=== PATIENT | female | born 1955 | race African-American/Black ===

== ENCOUNTER 2021-03-15 12:14 | Outpatient (CLI) | payer MEDICARE | END 2021-03-15 12:15 | disposition home or self-care (01) | LOC: BICULT 12:14 | PROVIDERS: ATTEND Nurse Practitioner Family | DX: Z12.31 Encounter for screening mammogram for malignant neoplasm of breast (principal); E03.9 Hypothyroidism, unspecified | CPT/HCPCS: 76536; 77063; 77067 ==

== ENCOUNTER 2021-05-04 13:14 | Outpatient (CLI) | payer MEDICARE | END 2021-05-04 13:15 | disposition home or self-care (01) | LOC: BICMAMMO 13:14 | PROVIDERS: ATTEND Nurse Practitioner Family | DX: Z13.820 Encounter for screening for osteoporosis (principal); E55.9 Vitamin D deficiency, unspecified | CPT/HCPCS: 77080 ==

== ENCOUNTER 2021-06-27 10:29 | Outpatient (CLI) | payer MEDICARE | END 2021-06-27 10:30 | disposition home or self-care (01) | LOC: RAD-FRANK 10:29 | PROVIDERS: ATTEND Nurse Practitioner Family | DX: M25.562 Pain in left knee (principal); M17.12 Unilateral primary osteoarthritis, left knee ==

== ENCOUNTER 2022-01-26 13:58 | Outpatient (CLI) | payer OTHER | END 2022-01-26 13:59 | disposition home or self-care (01) | LOC: RAD-FRANK 13:58 | PROVIDERS: ATTEND Nurse Practitioner Family | DX: I10 Essential (primary) hypertension (principal) | CPT/HCPCS: 71046 ==

== ENCOUNTER 2022-04-13 13:39 | Outpatient (CLI) | payer OTHER | END 2022-04-13 13:40 | disposition home or self-care (01) | LOC: DTY/OP 13:39 | PROVIDERS: ATTEND Nurse Practitioner Family | DX: E66.9 Obesity, unspecified (principal); E78.5 Hyperlipidemia, unspecified; I10 Essential (primary) hypertension; R73.01 Impaired fasting glucose; Z71.3 Dietary counseling and surveillance; Z68.44 Body mass index [BMI] 60.0-69.9, adult | CPT/HCPCS: 97802 ==

== ENCOUNTER 2024-03-20 12:57 | Outpatient (CLI) | payer MEDICARE ==
[2024-03-20 14:18] LABS: #Basophils 0.05 10x3/uL (0.0-0.2); %Basophils 0.4 % (0.0-1.0); %Eosinophils 1.3 % (0.0-10.0); %Lymphocytes 15.6 % (21.0-51.0); %Monocytes 6.4 % (0.0-10.0); %Neutrophils 76.1 % (42.0-75.0); Hematocrit 40.7 % (36.0-47.0); Hemoglobin 13.2 g/dL (12.0-16.0); Mean Corpuscular HGB CONC 32.4 g/dL (32.0-36.0); Mean Corpuscular Hemoglobin 30.4 pg (27.0-31.0); Mean Corpuscular Volume 93.8 fL (78.0-98.0); Mean Platelet Volume 9.5 fL (7.4-10.4); Platelet Count 541 10x3/uL (130-400); RBC Distribution Width 14.4 % (11.5-14.5); Red Blood Cell (RBC) Count 4.34 mill/uL (4.20-5.40)
[2024-03-20 14:35] LABS: ALT (SGPT) 11 U/L (8-55); AST (SGOT) 13 U/L (5-34); Albumin 3.4 g/dL (3.4-4.8); Alkaline Phosphatase 61 U/L (40-110); Anion Gap 11 mmol/L (10-20); BUN (Urea Nitrogen) 30 mg/dL (9.8-20.1); Bilirubin, Total 0.4 mg/dL (0.2-1.2); Calc. Creatinine Clearance 0 mL/min (70-130); Calcium 11.3 mg/dL (7.8-10.44); Carbon Dioxide 24 mmol/L (23-31); Chloride 105 mmol/L (98-107); Estimated GFR 45; Globulin 4.6 g/dL (2.4-3.5); Glucose 99 mg/dL (80-115); Hemoglobin A1c 5.7 % (4.0-6.0); Potassium 4.3 mmol/L (3.5-5.1); Sodium 136 mmol/L (136-145)
== END 2024-03-20 12:58 | disposition home or self-care (01) ==
LOC: LABBT 12:57
PROVIDERS: ATTEND Surgery
DX: Z01.818 Encounter for other preprocedural examination (principal); E66.01 Morbid (severe) obesity due to excess calories
CPT/HCPCS: 80053; 83036; 85025; 93005; 93010

== ENCOUNTER 2024-03-20 14:00 | Inpatient (IN) | payer MEDICARE ==
[2024-03-20 13:26] VITALS: BMI 60.1
[2024-04-01] MEDS ORDERED: Bupivacaine 0.25% HCL 30 ML VIAL ONE (06:36)
[2024-04-01] MEDS ORDERED: EPINEPHrine 1 MG/ML VIAL ONE (06:36)
[2024-04-01] MEDS ORDERED: Heparin 5,000 UNITS/ML VIAL ONE (06:45)
[2024-04-01] MEDS ORDERED: PROPOFOL 20 ML ONE (07:05)
[2024-04-01] MEDS ORDERED: Rocuronium Bromide 10 MG/ML (10ML VIAL) ONE (07:05)
[2024-04-01] MEDS ORDERED: Lidocaine 1% PF 5 ML VIAL ONE (07:05)
[2024-04-01] MEDS ORDERED: fentaNYL PF 100 MCG/2 ML SYRINGE ONE (07:05)
[2024-04-01] MEDS ORDERED: CEFAZOLIN 2 GM VIAL ONE (07:24)
[2024-04-01] MEDS ORDERED: Dexamethasone 20 MG/5 ML VIAL ONE (07:55)
[2024-04-01] MEDS ORDERED: Ondansetron PF 4 MG/2 ML Vial ONE (07:55)
[2024-04-01] MEDS ORDERED: PHENYLEPHRINE-NS 100 MCG/ML 10 ML SYRINGE ONE (07:56)
[2024-04-01] MEDS ORDERED: ePHEDrine Sulfate 50 MG/10 ML VIAL ONE (08:05)
[2024-04-01] MEDS ORDERED: SUGAMMADEX SODIUM 200 MG/2 ML VIAL ONE (08:36)
[2024-04-01] MEDS ORDERED: fentaNYL 50 mcg/mL 1 mL Vial ONE ×3 (09:02→09:59)
[2024-04-01] MEDS ORDERED: Non-Formulary Item 1 EACH (Levothyroxine Sodium [Synthroid] 200 MCG Tablet) PO SCH (09:24)
[2024-04-01] MEDS ORDERED: Ipratropium/Albuterol 3 ML NEB NEB PRN (09:24)
[2024-04-01] MEDS ORDERED: oxyCODONE 5 MG TAB PO PRN (09:24)
[2024-04-01] MEDS ORDERED: Dextrose 5% in Water 1,000 ML IV PRN (09:24)
[2024-04-01] MEDS ORDERED: Glucagon 1 MG/ML KIT IM PRN (09:24)
[2024-04-01] MEDS ORDERED: diphenhydrAMINE 50 MG/ML VIAL IVP PRN (09:24)
[2024-04-01] MEDS ORDERED: Non-Formulary Item 1 EACH (Carvedilol [Coreg] 12.5 MG Tab) PO SCH (09:24)
[2024-04-01] MEDS ORDERED: Dextrose 50% Abboject 50 ML SYRINGE SLOW IVP PRN (09:24)
[2024-04-01] MEDS ORDERED: Ondansetron PF 4 MG/2 ML Vial IVP PRN (09:24)
[2024-04-01] MEDS ORDERED: Non-Formulary Item 1 EACH (Losartan Potassium [Cozaar] 100 MG Tablet) PO SCH (09:24)
[2024-04-01] MEDS ORDERED: hydrALAZINE 20 MG/ML VIAL SLOW IVP PRN (09:24)
[2024-04-01] MEDS ORDERED: Liothyronine Sodium 5 MCG TAB PO SCH (09:24)
[2024-04-01] MEDS ORDERED: traMADol HCl 50 MG TAB PO PRN (09:24)
[2024-04-01] MEDS ORDERED: Promethazine HCl 25 MG/ML VIAL IM PRN ×2 (09:24→10:00)
[2024-04-01] MEDS ORDERED: SYNTHROID 200 MCG PO SCH (09:45)
[2024-04-01] MEDS ORDERED: Ondansetron HCl/PF 4 MG/2 ML Vial IVP PRN (10:00)
[2024-04-01] MEDS: Pantoprazole 40 MG VIAL IVP SCH (11:22)
[2024-04-01] MEDS: Enoxaparin 40 MG (0.4 mL) SYRINGE SC SCH (11:22)
[2024-04-01] MEDS: Hydrochlorothiazide 25 MG TAB PO SCH (11:22)
[2024-04-01] MEDS: Amlodipine 5 MG TAB PO SCH (11:22)
[2024-04-01] MEDS: Spironolactone 100 MG TAB PO SCH (11:22)
[2024-04-01] MEDS: Acetaminophen 500 MG TAB PO SCH (11:26)
[2024-04-01] MEDS: D5 1/2 NS w/20 mEq KCL 1,000 ML IV SCH (11:38)
[2024-04-01] MEDS: Acetaminophen 650 MG/20.3 ML UDCUP PO SCH ×2 (11:42→11:43)
[2024-04-02 05:22] LABS: #Basophils Less than 0.03 10x3/uL (0.0-0.2); #Eosinophils Less than 0.03 10x3/uL (0.0-0.7); %Basophils 0.1 % (0.0-1.0); %Lymphocytes 4.4 % (21.0-51.0); %Monocytes 6.6 % (0.0-10.0); %Neutrophils 88.5 % (42.0-75.0); Hematocrit 35.9 % (36.0-47.0); Hemoglobin 11.9 g/dL (12.0-16.0); Mean Corpuscular HGB CONC 33.1 g/dL (32.0-36.0); Mean Corpuscular Hemoglobin 30.4 pg (27.0-31.0); Mean Corpuscular Volume 91.6 fL (78.0-98.0); Mean Platelet Volume 9.6 fL (7.4-10.4); Platelet Count 450 10x3/uL (130-400); RBC Distribution Width 14.3 % (11.5-14.5); Red Blood Cell (RBC) Count 3.92 mill/uL (4.20-5.40)
[2024-04-02 05:30] LABS: Anion Gap 14 mmol/L (10-20); BUN (Urea Nitrogen) 34 mg/dL (9.8-20.1); Calc. Creatinine Clearance 100 mL/min (70-130); Calcium 9.5 mg/dL (7.8-10.44); Carbon Dioxide 20 mmol/L (23-31); Chloride 106 mmol/L (98-107); Estimated GFR 42; Glucose 137 mg/dL (80-115); Potassium 4.5 mmol/L (3.5-5.1); Sodium 135 mmol/L (136-145)
[2024-04-02] MEDS: Losartan 25 MG TAB PO SCH (07:46)
[2024-04-02] MEDS: Carvedilol 6.25 MG TAB PO SCH (07:50)
[2024-04-02 08:07] VITALS: BP 130/76; TEMP 97.8
== END 2024-04-02 10:52 | disposition home or self-care (01) | DRG 621 ==
LOC: SURG A 04-01 05:58
PROVIDERS: ADMIT Surgery; ATTEND Surgery
PROC: 0DB64Z3 Excision of Stomach, Percutaneous Endoscopic Approach, Vertical (ICD-10-PCS; principal; 2024-04-01)
PROC: 8E0W4CZ Robotic Assisted Procedure of Trunk Region, Percutaneous Endoscopic Approach (ICD-10-PCS; 2024-04-01)
DX: E66.01 Morbid (severe) obesity due to excess calories (principal); I10 Essential (primary) hypertension; E78.00 Pure hypercholesterolemia, unspecified; Z98.890 Other specified postprocedural states; Z90.710 Acquired absence of both cervix and uterus; Z79.899 Other long term (current) drug therapy; Z88.7 Allergy status to serum and vaccine; Z68.44 Body mass index [BMI] 60.0-69.9, adult
CPT/HCPCS: 36415; 80048; 85025; 88307; J0171; J0665; J1100; J1644; J1650; J2405; J2470; J2704; J3010; J3480; S2900

== ENCOUNTER 2024-04-24 10:30 | Inpatient (IN) | payer MEDICARE ==
[~2024-04-24 10:30] MED LIST: Diltiazem HCl/D5W 125 ML ONE; dilTIAZem 25 MG/5 ML VIAL ONE
[2024-04-25 04:49] LABS: #Basophils 0.05 10x3/uL (0.0-0.2); %Basophils 0.5 % (0.0-1.0); %Eosinophils 1.6 % (0.0-10.0); %Lymphocytes 19.2 % (21.0-51.0); %Monocytes 10.2 % (0.0-10.0); %Neutrophils 68.2 % (42.0-75.0); Hematocrit 34.5 % (36.0-47.0); Hemoglobin 11.2 g/dL (12.0-16.0); Mean Corpuscular HGB CONC 32.5 g/dL (32.0-36.0); Mean Corpuscular Hemoglobin 29.9 pg (27.0-31.0); Mean Corpuscular Volume 92.2 fL (78.0-98.0); Mean Platelet Volume 9.6 fL (7.4-10.4); Platelet Count 488 10x3/uL (130-400); RBC Distribution Width 14.3 % (11.5-14.5); Red Blood Cell (RBC) Count 3.74 mill/uL (4.20-5.40)
[2024-04-25 05:54] LABS: ALT (SGPT) 16 U/L (8-55); AST (SGOT) 26 U/L (5-34); Albumin 2.8 g/dL (3.4-4.8); Alkaline Phosphatase 47 U/L (40-110); Anion Gap 14 mmol/L (10-20); BUN (Urea Nitrogen) 36 mg/dL (9.8-20.1); Bilirubin, Total 0.5 mg/dL (0.2-1.2); Calc. Creatinine Clearance 68 mL/min (70-130); Calcium 10.2 mg/dL (7.8-10.44); Carbon Dioxide 21 mmol/L (23-31); Chloride 107 mmol/L (98-107); Estimated GFR 29; Globulin 3.7 g/dL (2.4-3.5); Glucose 98 mg/dL (80-115); Potassium 3.6 mmol/L (3.5-5.1); Protein, Total 6.5 g/dL (5.8-8.1); Sodium 138 mmol/L (136-145)
[2024-04-25] MEDS ORDERED: BARIATRIC MULTIVITAMIN PO SCH (09:00)
[2024-04-25] MEDS ORDERED: [UNRECOGNIZED DRUG - OTHER] PO SCH (09:00)
[2024-04-25] MEDS ORDERED: CALCIUM CITRATE PO SCH (09:00)
[2024-04-25] MEDS: Carvedilol 6.25 MG TAB PO SCH (10:52)
[2024-04-25] MEDS: Enoxaparin 120 MG/0.8 ML SYRINGE SC SCH ×2 (10:53→20:49)
[2024-04-25] MEDS: Enoxaparin 30 MG (0.3 mL) SYRINGE SC SCH ×2 (10:53→20:49)
[2024-04-25] MEDS: Liothyronine Sodium 5 MCG TAB PO SCH (10:53)
[2024-04-25] MEDS: Levothyroxine Sodium 100 MCG TAB PO SCH (10:53)
[2024-04-25] MEDS: Pantoprazole DR 40 MG TAB PO SCH (10:53)
[2024-04-25] MEDS: Enoxaparin 60 MG (0.6 mL) SYRINGE SC SCH (10:54)
[2024-04-25] MEDS: dilTIAZem 125 MG, Admixture Fee 1 EACH in Sodium Chloride 0.9% 100 ML IVPB SCH (10:58)
[2024-04-25] MEDS: Metoprolol Tartrate 25 MG TAB PO SCH (23:17)
[2024-04-25] MEDS: Senokot S 8.6-50 MG TAB PO SCH (23:17)
[2024-04-26 04:34] LABS: #Basophils 0.04 10x3/uL (0.0-0.2); %Basophils 0.4 % (0.0-1.0); %Eosinophils 1.7 % (0.0-10.0); %Lymphocytes 21.4 % (21.0-51.0); %Monocytes 10.6 % (0.0-10.0); %Neutrophils 65.7 % (42.0-75.0); Hematocrit 34.1 % (36.0-47.0); Hemoglobin 11.1 g/dL (12.0-16.0); Mean Corpuscular HGB CONC 32.6 g/dL (32.0-36.0); Mean Corpuscular Hemoglobin 29.8 pg (27.0-31.0); Mean Corpuscular Volume 91.4 fL (78.0-98.0); Mean Platelet Volume 9.6 fL (7.4-10.4); Platelet Count 477 10x3/uL (130-400); Red Blood Cell (RBC) Count 3.73 mill/uL (4.20-5.40)
[2024-04-26 04:58] LABS: Anion Gap 14 mmol/L (10-20); BUN (Urea Nitrogen) 33 mg/dL (9.8-20.1); Calc. Creatinine Clearance 67 mL/min (70-130); Calcium 10.5 mg/dL (7.8-10.44); Carbon Dioxide 21 mmol/L (23-31); Chloride 105 mmol/L (98-107); Estimated GFR 28; Glucose 99 mg/dL (80-115); Potassium 3.4 mmol/L (3.5-5.1); Sodium 137 mmol/L (136-145)
[2024-04-26] MEDS: Enoxaparin 30 MG (0.3 mL) SYRINGE SC SCH (10:00)
[2024-04-26] MEDS ORDERED: traMADol HCl 50 MG TAB PO PRN (11:33)
[2024-04-26] MEDS: Potassium Chloride 20 MEQ TAB PO SCH (11:51)
[2024-04-26] MEDS: traMADol HCl 50 MG TAB PO SCH (11:51)
[2024-04-26 12:32] VITALS: BMI 56.1
[2024-04-26 16:30] VITALS: BP 111/79; TEMP 97.8
[2024-04-27] MEDS ORDERED: Liothyronine Sodium 5 MCG TAB PO SCH (05:00)
[2024-04-28 12:57] LABS: Hematocrit 37.5 % (36.0-47.0); Hemoglobin 12.4 g/dL (12.0-16.0); Mean Corpuscular HGB CONC 33.1 g/dL (32.0-36.0); Mean Corpuscular Hemoglobin 30.7 pg (27.0-31.0); Mean Corpuscular Volume 92.8 fL (78.0-98.0); RBC Distribution Width 13.9 % (11.5-14.5); Red Blood Cell (RBC) Count 4.04 mill/uL (4.20-5.40); White Blood Cell (WBC) Count 11.44 10x3/uL (4.8-10.8)
[2024-04-28 12:58] LABS: #Basophils 0.06 10x3/uL (0.0-0.2); #Eosinophils 0.15 10x3/uL (0.0-0.7); #Monocytes 1.11 10x3/uL (0.11-0.59); #Neutrophils 7.93 10x3/uL (1.40-6.50); %Basophils 0.5 % (0.0-1.0); %Eosinophils 1.3 % (0.0-10.0); %Monocytes 9.7 % (0.0-10.0); %Neutrophils 69.3 % (42.0-75.0); Mean Platelet Volume 9.8 fL (7.4-10.4); Platelet Count 504 10x3/uL (130-400)
[2024-04-28 12:59] LABS: INR-International Normal Ratio 1.1; PTT 27.5 sec (22.9-36.1); Prothrombin Time 14.4 sec (12.0-14.7)
[2024-04-28 13:03] LABS: ALT (SGPT) 15 U/L (8-55); AST (SGOT) 19 U/L (5-34); Albumin 3.1 g/dL (3.4-4.8); Alkaline Phosphatase 53 U/L (40-110); Anion Gap 18 mmol/L (10-20); BUN (Urea Nitrogen) 48 mg/dL (9.8-20.1); Bilirubin, Total 0.6 mg/dL (0.2-1.2); Calc. Creatinine Clearance 42 mL/min (70-130); Calcium 11.2 mg/dL (7.8-10.44); Carbon Dioxide 18 mmol/L (23-31); Chloride 103 mmol/L (98-107); Estimated GFR 16; Globulin 4.2 g/dL (2.4-3.5); Glucose 101 mg/dL (80-115); Protein, Total 7.3 g/dL (5.8-8.1); Sodium 135 mmol/L (136-145)
[2024-04-29 14:10] LABS: Troponin I Less than 0.010 ng/mL (< 0.028)
== END 2024-04-26 17:00 | disposition home or self-care (01) | DRG 309 ==
LOC: ERS 10:30 → 2NO 10:35 → PCU 19:03
PROVIDERS: ADMIT Family Medicine; ATTEND Internal Medicine
DX: I48.91 Unspecified atrial fibrillation (principal); N17.9 Acute kidney failure, unspecified; Z68.43 Body mass index [BMI] 50.0-59.9, adult; I73.9 Peripheral vascular disease, unspecified; N18.30 Chronic kidney disease, stage 3 unspecified; E87.6 Hypokalemia; E88.09 Other disorders of plasma-protein metabolism, not elsewhere classified; Z79.899 Other long term (current) drug therapy; E66.01 Morbid (severe) obesity due to excess calories; Z98.890 Other specified postprocedural states; Z90.710 Acquired absence of both cervix and uterus; I45.10 Unspecified right bundle-branch block; E03.9 Hypothyroidism, unspecified; N18.9 Chronic kidney disease, unspecified; I12.9 Hypertensive chronic kidney disease with stage 1 through stage 4 chronic kidney disease, or unspecified chronic kidney disease
CPT/HCPCS: 36415; 36416; 70450; 71045; 80048; 80053; 83735; 83880; 84443; 84484; 85025; 85610; 85730; 93005; 93306; 93923; 94760; 96365; 96366; 96372; 96376; J1650